=== PATIENT | female | born 1975 | race Caucasian/White ===

== ENCOUNTER 2021-08-31 07:37 | Day surgery (SDC) | payer OTHER ==
[~2021-08-31 07:37] MED LIST: Sodium Chloride 0.9% 10 ML Syringe FLUSH PRN
[2021-08-31] MEDS ORDERED: Lidocaine 1% PF 2 ML SDV INJECT ONE (07:38)
[2021-08-31] MEDS ORDERED: Propofol 200 MG/20 ML SDV IV ONE (07:38)
[2021-08-31] MEDS: Lactated Ringers 1,000 ML IV SCH (08:10)
== END 2021-08-31 10:55 | disposition home or self-care (01) ==
LOC: FB.SDS 07:37
PROVIDERS: ATTEND Surgery
DX: D12.6 Benign neoplasm of colon, unspecified (principal); K57.30 Diverticulosis of large intestine without perforation or abscess without bleeding; E66.9 Obesity, unspecified; Z88.0 Allergy status to penicillin; Z80.0 Family history of malignant neoplasm of digestive organs; Z98.890 Other specified postprocedural states; Z68.30 Body mass index [BMI] 30.0-30.9, adult
CPT/HCPCS: 00811-QZ; 81025; 88305; J2704; J7120